=== PATIENT | male | born 1940 | race Caucasian/White ===

== ENCOUNTER → 2016-07-16 | Outpatient (CLI) | payer MEDICARE, BC | LOC: EXRD 13:00 | DX: M79.672 Pain in left foot (principal) | CPT/HCPCS: 73630; 73650 ==

== ENCOUNTER 2020-09-23 08:12 | Emergency (ER) | payer MEDICARE, BC ==
[2020-09-23 09:25] LABS: HEMOGLOBIN 13.6 gm/dl (14.0-17.5); RED BLOOD COUNT 4.67 M/UL (4.20-5.50); WHITE BLOOD COUNT 9.9 K/UL (4.5-11.0)
[2020-09-23 09:47] LABS: BUN/CREATININE RATIO 17 (0-10)
== END 2020-09-23 13:55 | disposition home or self-care (01) ==
LOC: ER1 08:12
PROVIDERS: Emergency Medicine
DX: S09.90XA Unspecified injury of head, initial encounter (principal); E86.0 Dehydration; E87.6 Hypokalemia; M79.89 Other specified soft tissue disorders; E78.5 Hyperlipidemia, unspecified; I10 Essential (primary) hypertension; W22.8XXA Striking against or struck by other objects, initial encounter
CPT/HCPCS: 70450; 80053; 82550; 82553; 83874; 84484; 85025; 99284; J7040

== ENCOUNTER → 2020-10-26 | Outpatient (CLI) | payer MEDICARE, BC | LOC: HEART 5 10-25 13:30 | DX: R25.2 Cramp and spasm (principal) ==

== ENCOUNTER → 2020-12-12 | Outpatient (CLI) | payer MEDICARE, BC | LOC: EXRD 12:53 | DX: N18.31 Chronic kidney disease, stage 3a (principal) | CPT/HCPCS: 76775 ==

== ENCOUNTER → 2020-12-28 | Outpatient (CLI) | payer MEDICARE, BC | LOC: HEART 5 12-11 11:00 | DX: I08.8 Other rheumatic multiple valve diseases (principal); I27.20 Pulmonary hypertension, unspecified; I48.91 Unspecified atrial fibrillation | CPT/HCPCS: 93306 ==

== ENCOUNTER → 2021-07-04 | Outpatient (CLI) | payer MEDICARE, BC | LOC: ECHO 08:52 | DX: I08.8 Other rheumatic multiple valve diseases (principal) | CPT/HCPCS: ECHO; 93306 ==

== ENCOUNTER 2021-07-08 07:06 | Emergency (ER) | payer MEDICARE, BC | END 2021-07-08 11:16 | disposition home or self-care (01) | LOC: ER1 07:06 | DX: S76.011A Strain of muscle, fascia and tendon of right hip, initial encounter (principal); W19.XXXA Unspecified fall, initial encounter; Y92.009 Unspecified place in unspecified non-institutional (private) residence as the place of occurrence of the external cause | CPT/HCPCS: 72192; 99283 ==